=== PATIENT | male | born 1990 | race Caucasian/White ===

== ENCOUNTER 2019-06-08 00:39 | Emergency (ER) | payer MEDICAID ==
[~2019-06-08] VITALS: Ht 180.3 cm; Wt 81.6 kg
--- NOTE | 2019-06-08 00:45 | NUR ---
PT BIBSELF C/O OF NAUSEA AND VOMITTING X 12HRS, PT C/O OF THROAT PAIN. PT AXO4. RESPIRATIONS EVEN AND UNLABORED. PT PUT ON THE RUG CUTTER HELPER AND PULSE OX. PENDING EVAL FROM ER .
[2019-06-08] MEDS ORDERED: IV D5/ 0.9% NACL 1,000 ML IV ONE (00:51)
[2019-06-08] MEDS ORDERED: ONDANSETRON HCL/PF 4 MG/2 ML VIAL IVP ONE (01:00)
[2019-06-08] MEDS ORDERED: ONDANSETRON HCL/PF 4 MG/2 ML VIAL ONE (01:02)
[2019-06-08 01:42] LABS: BASOPHILS # (AUTO) 0.1 /CMM (0.0-0.2); BASOPHILS % (AUTO) 0.4 % (0.0-2.0); HEMATOCRIT 48 % (39-51); LYMPHOCYTES # (AUTO) 0.5 /CMM (0.8-4.8); LYMPHOCYTES % (AUTO) 3.3 % (20.0-44.0); MEAN CORPUSCULAR HGB CONC 35 g/dl (31.0-36.0); MEAN CORPUSCULAR VOLUME 97 fL (80-96); MONOCYTES # (AUTO) 1.4 /CMM (0.1-1.30); MONOCYTES % (AUTO) 9.6 % (2.0-12.0); NEUTROPHILS # (AUTO) 12.4 /CMM (1.8-8.9); NEUTROPHILS % (AUTO) 86.7 % (43.0-81.0); PLATELET COUNT (AUTO) 216 /CMM (150-450); RED BLOOD CELL COUNT(AUTO) 4.98 MIL/uL (4.5-6.0); WHITE BLOOD COUNT (AUTO) 14.3 K/uL (4.3-11.0)
[2019-06-08 01:58] LABS: CALCIUM, SERUM 9.4 mg/dL (8.5-10.1); CREATININE 1.6 mg/dL (0.6-1.3); POTASSIUM 4.2 mmol/L (3.5-5.1)
[2019-06-08 02:02] LABS: ALBUMIN 4.3 g/dL (3.4-5.0); BILIRUBIN,DIRECT 0.5 mg/dL (0.0-0.2); BILIRUBIN,TOTAL 1.7 mg/dL (0.2-1.0); TOTAL PROTEIN, SERUM 8.6 g/dL (6.4-8.2)
[2019-06-08] MEDS ORDERED: LIDOCAINE VISCOUS 2% UD 15 ML UDC ONE (02:12)
[2019-06-08] MEDS ORDERED: MAG HYDROX/AL HYDROX/SIMETH 30 ML UDC ONE (02:12)
[2019-06-08] MEDS ORDERED: MAG HYDROX/AL HYDROX/SIMETH 30 ML UDC PO ONE (02:30)
[2019-06-08] MEDS ORDERED: LIDOCAINE VISCOUS 2% UD 15 ML UDC MM ONE (02:30)
--- NOTE | 2019-06-08 02:30 | NUR ---
PT RESTING IN BED, NAD NOTED. WILL CONTINUE TO MONITOR.
[2019-06-08] MEDS ORDERED: HYDROMORPHONE 1 MG/1 ML DISP.SYRIN ONE (03:34)
[2019-06-08] MEDS ORDERED: METOCLOPRAMIDE HCL 10 MG/2 ML VIAL ONE (03:55)
[2019-06-08] MEDS ORDERED: HYDROMORPHONE 1 MG/1 ML DISP.SYRIN IV ONE (04:00)
[2019-06-08] MEDS ORDERED: METOCLOPRAMIDE HCL 10 MG/2 ML VIAL IV ONE (04:00)
[2019-06-08] MEDS ORDERED: IV NS 0.9% 1,000 ML IV PRN (04:43)
--- NOTE | 2019-06-08 04:50 | NUR ---
PT BROTHER ARRIVED TO ER BEING VERBALLY AGRESSIVE AND CURSING AT STAFF DEMANDING THAT WE REMOVE PATIENTS IV SO THEY COULD LEAVE THE HOSPITAL. DR ACOSTA CALLED TO BEDSIDE TO EXPLAIN PATIENTS CONDITION AND REASON FOR ADMISSION. BROTHER CONTINUED TO SPEAK AGGRESSIVELY AND CURSING AT DR ACOSTA. SECURITY AT BEDSIDE DUE TO AGGRESSIVE BEHAVIOR. Patient does not wish to proceed with medical care recommended by Dr. ACOSTA. Patient given information related to possible complications, up to and including , which could occur as a result of leaving the hospital at this time. Patient verbalizes understanding of risks involved due to leaving against medical advice. Patient has signed AMA form.
[2019-06-08] MEDS ORDERED: Z GUARD REMEDY 2 OZ OINT TP PRN (05:00)
[2019-06-08] MEDS ORDERED: MORPHINE SULFATE INJ 2 MG/ML DISP.SYRIN IV PRN (05:00)
[2019-06-08] MEDS ORDERED: LORAZEPAM INJ 2 MG/ML VIAL IV ONE (05:00)
[2019-06-08] MEDS ORDERED: ONDANSETRON HCL/PF 4 MG/2 ML VIAL IVP PRN (05:00)
[2019-06-08] MEDS ORDERED: ACETAMINOPHEN 325 MG TABLET PO PRN (05:00)
[2019-06-08 05:18] VITALS: BP 139/71
[2019-06-08] MEDS ORDERED: PANTOPRAZOLE 40 MG VIAL IV SCH (09:00)
== END 2019-06-08 05:19 | disposition left against medical advice (07) ==
LOC: ER 00:46 → UNDOADMIN 04:23 → MEDSG1 04:23 → ER 05:19
DX: K85.90 Acute pancreatitis without necrosis or infection, unspecified (principal); F10.20 Alcohol dependence, uncomplicated; K80.20 Calculus of gallbladder without cholecystitis without obstruction; R11.10 Vomiting, unspecified; Z60.2 Problems related to living alone; Y90.9 Presence of alcohol in blood, level not specified
CPT/HCPCS: 36415; 71045; 76705; 80048; 80076; 83690; 85025; 87081; 96361; 96374; 96375; 99284; A4216; C9113; J1170; J2405; J2765; J7042

== ENCOUNTER 2021-03-15 09:44 | Emergency (ER) | payer MEDICAID ==
[~2021-03-15] VITALS: Ht 182.9 cm; Wt 87.5 kg
--- NOTE | 2021-03-15 10:00 | NUR ---
patient came in to the er c/o left eye pain s/p slipped and fell hitting head in bathtub saturday night. On room air, breathing evenly and unlabored. Kept comfortable, will continue to monitor accordingly.
--- NOTE | 2021-03-15 10:15 | NUR ---
Dr. Mane at bedside for eval
[2021-03-15 11:51] VITALS: BP 118/78
--- NOTE | 2021-03-15 11:52 | NUR ---
Patient discharged to home in stable condition. Written and verbal after care instructions given. Patient verbalizes understanding of instruction.
== END 2021-03-15 11:52 | disposition home or self-care (01) ==
LOC: ER 09:44
DX: S05.12XA Contusion of eyeball and orbital tissues, left eye, initial encounter (principal); S09.8XXA Other specified injuries of head, initial encounter; F10.10 Alcohol abuse, uncomplicated; Y90.9 Presence of alcohol in blood, level not specified; Z60.2 Problems related to living alone; W01.198A Fall on same level from slipping, tripping and stumbling with subsequent striking against other object, initial encounter; Y93.89 Activity, other specified; Y92.89 Other specified places as the place of occurrence of the external cause; Y99.8 Other external cause status
CPT/HCPCS: 70450-TC; 70486-TC

== ENCOUNTER 2021-03-28 00:14 | Emergency (ER) | payer MEDICAID ==
[~2021-03-28] VITALS: Ht 182.9 cm; Wt 90.7 kg
--- NOTE | 2021-03-28 00:25 | NUR ---
bib girlfriend, endorses been "binge drinking" for days now. and is concern when she saw "bleach" inside his fridge and he might be drinking them. pt appears restless. etoh smell. restless, not verbally responsive. tachy group captain. awaiting md rios.
--- NOTE | 2021-03-28 00:36 | NUR ---
dr adames at bedside for eval.
--- NOTE | 2021-03-28 00:44 | NUR ---
label coder at bedside for blood draw.
[2021-03-28 01:10] LABS: BASOPHILS # (AUTO) 0.1 /CMM (0.0-0.2); BASOPHILS % (AUTO) 2.4 % (0.0-2.0); EOSINOPHILS % (AUTO) 0.2 % (0.0-6.0); HEMATOCRIT 48 % (39-51); HEMOGLOBIN 16.9 g/dL (13.5-17.5); LYMPHOCYTES # (AUTO) 2.4 /CMM (0.8-4.8); LYMPHOCYTES % (AUTO) 46.3 % (20.0-44.0); MEAN CORPUSCULAR HGB CONC 35 g/dl (31.0-36.0); MEAN CORPUSCULAR VOLUME 91 fL (80-96); MONOCYTES # (AUTO) 0.6 /CMM (0.1-1.30); MONOCYTES % (AUTO) 10.9 % (2.0-12.0); NEUTROPHILS # (AUTO) 2.1 /CMM (1.8-8.9); NEUTROPHILS % (AUTO) 40.2 % (43.0-81.0); PLATELET COUNT (AUTO) 372 /CMM (150-450); RED BLOOD CELL COUNT(AUTO) 5.25 MIL/uL (4.5-6.0); WHITE BLOOD COUNT (AUTO) 5.2 K/uL (4.3-11.0)
[2021-03-28 01:31] LABS: CALCIUM, SERUM 8.6 mg/dL (8.5-10.1); CARBON DIOXIDE 25 mmol/L (21-32); CHLORIDE 106 mmol/L (98-107); CREATININE 0.9 mg/dL (0.6-1.3); GLUCOSE 120 mg/dL (74-106); POTASSIUM 2.9 mmol/L (3.5-5.1); SODIUM SERUM 148 mmol/L (136-145); UREA NITROGEN, BLOOD 3 mg/dL (7-18)
[2021-03-28 01:38] LABS: ALANINE AMINOTRANSFERASE 119 U/L (12-78); ALCOHOL, BLOOD 483 mg/dL (0-0); ALKALINE PHOSPHATASE 126 U/L (46-116); ASPARTATE AMINOTRANSFERASE 100 U/L (15-37); BILIRUBIN,DIRECT 0.3 mg/dL (0.0-0.2); BILIRUBIN,TOTAL 0.7 mg/dL (0.2-1.0); TOTAL PROTEIN, SERUM 8.2 g/dL (6.4-8.2)
[2021-03-28 01:41] LABS: ACETAMINOPHEN < 2 ug/ml (10-30)
[2021-03-28 01:57] LABS: BILIRUBIN,URINE Negative (NEGATIVE); COLOR,URINE YELLOW (YELLOW); LEUKOCYTE ESTERASE ,URINE Negative (NEGATIVE); NITRITE, URINE Negative (NEGATIVE); PH,URINE 6.5 (5.0-8.0); PROTEIN,URINE Trace mg/dl (NEGATIVE); UGLUCOSE Negative (NEGATIVE); UROBILINOGEN,URINE 0.2 EU/dL (0.2)
[2021-03-28 02:41] LABS: BACTERIA,URINE None seen /HPF (None Seen); RBC,URINE 0-2 /HPF (0-2); SQUAMOUS EPITHELIAL CELL,UR Few /HPF (None Seen); URINE AMORPHOUS URATE Moderate /HPF (None Seen); WBC,URINE 0-2 /HPF (0-3)
--- NOTE | 2021-03-28 05:31 | NUR ---
sleeping, on monitor. stable vitals. arousable. will continue to monitor.
[2021-03-28] MEDS ORDERED: ONDANSETRON HCL/PF 4 MG/2 ML VIAL ONE (07:05)
--- NOTE | 2021-03-28 07:08 | NUR ---
pt requested medication for nausea. ermd aware. order for 1L NS and zofran 4mg iv. but patient refused.
[2021-03-28] MEDS: IV NS 0.9% 1,000 ML BAG IV ONE (07:11)
[2021-03-28] MEDS: ONDANSETRON HCL/PF 4 MG/2 ML VIAL IVP ONE (07:11)
--- NOTE | 2021-03-28 07:42 | NUR ---
PT STATED HE IS NOT SUICIDAL AND HIS WILL PICK HIM UP. AWARE.
--- NOTE | 2021-03-28 07:55 | NUR ---
Patient discharged to home in stable condition. Written and verbal after care instructions given to Patient's verbalizes understanding of instruction.
[2021-03-28 07:56] VITALS: BP 138/84
== END 2021-03-28 07:57 | disposition home or self-care (01) ==
LOC: ER 00:15
DX: R45.851 Suicidal ideations (principal); F10.10 Alcohol abuse, uncomplicated; Y90.8 Blood alcohol level of 240 mg/100 ml or more; R11.0 Nausea; R00.0 Tachycardia, unspecified; Z20.822 Contact with and (suspected) exposure to COVID-19
CPT/HCPCS: 36415; 80048; 80076; 80299; 80307; 80320; 81001; 85025; 87426; 99285; C9803; G0480; J2405; J7030

== ENCOUNTER 2021-04-14 14:37 | Emergency (ER) | payer MEDICAID ==
[~2021-04-14] VITALS: Ht 170.2 cm; Wt 81.6 kg
--- NOTE | 2021-04-14 14:50 | NUR ---
The patient is BIBA RA88 From Home "Intoxicated/alcoholic been binge drinking". Patient is alert and oriented x1. Verbally responsive. In room air. Respiration regular and unlabored. Attached to the monitor.
--- NOTE | 2021-04-14 15:35 | NUR ---
Quality Control Auditor consult: career services coordinator consult requested for ETOH use. Patient is a 31-year-old, male. SW met with patient at his bedside in the emergency department. Patient was alert and oriented x3. Patient was not oriented to situation. Patient presented drowsy. Per chart, patient was brought in by ambulance on 04/14/21 for ETOH use. SW assessed patients history of substance use and patient denied history and current substance use. SW discussed with the patient that ETOH use is what brought him to the hospital. Patient denied ETOH use. Patient stated that he currently lives with his girlfriend at [address] [place] [address]; [phone]. Patient stated that he is currently unemployed and receives GLADYS. Patient stated that he has adequate support from his parents and girlfriend. SW assessed patients history of mental illness and patient denied history. Patient denied current suicidal or homicidal ideation. SW discussed discharge plans with the patient and patient stated that he will be returning to his prior living arrangement. Patient stated he will be picked up by his parents. PLAN: Patient plans to return to his prior living arrangement at the time of discharge. No further SS intervention at this time, however, SW will remain available as needed.
[2021-04-14 16:02] LABS: BASOPHILS # (AUTO) 0.2 /CMM (0.0-0.2); BASOPHILS % (AUTO) 2.8 % (0.0-2.0); HEMATOCRIT 50 % (39-51); HEMOGLOBIN 17.2 g/dL (13.5-17.5); MEAN CORPUSCULAR HGB CONC 35 g/dl (31.0-36.0); MEAN CORPUSCULAR VOLUME 92 fL (80-96); MONOCYTES # (AUTO) 0.7 /CMM (0.1-1.30); MONOCYTES % (AUTO) 7.7 % (2.0-12.0); NEUTROPHILS # (AUTO) 4.5 /CMM (1.8-8.9); NEUTROPHILS % (AUTO) 53.5 % (43.0-81.0); PLATELET COUNT (AUTO) 553 /CMM (150-450); RED BLOOD CELL COUNT(AUTO) 5.39 MIL/uL (4.5-6.0); WHITE BLOOD COUNT (AUTO) 8.5 K/uL (4.3-11.0)
[2021-04-14] MEDS: IV NS 0.9% 1,000 ML BAG IV ONE (16:09)
[2021-04-14 16:14] LABS: CALCIUM, SERUM 8.5 mg/dL (8.5-10.1); CARBON DIOXIDE 21 mmol/L (21-32); CHLORIDE 104 mmol/L (98-107); CREATININE 1.1 mg/dL (0.6-1.3); GLUCOSE 155 mg/dL (74-106); POTASSIUM 3.2 mmol/L (3.5-5.1); SODIUM SERUM 146 mmol/L (136-145); UREA NITROGEN, BLOOD 2 mg/dL (7-18)
[2021-04-14 16:21] LABS: ALANINE AMINOTRANSFERASE 56 U/L (12-78); ALBUMIN 4.1 g/dL (3.4-5.0); ALCOHOL, BLOOD 513 mg/dL (0-0); ALKALINE PHOSPHATASE 129 U/L (46-116); ASPARTATE AMINOTRANSFERASE 47 U/L (15-37); BILIRUBIN,DIRECT 0.1 mg/dL (0.0-0.2); BILIRUBIN,TOTAL 0.4 mg/dL (0.2-1.0); TOTAL PROTEIN, SERUM 8.5 g/dL (6.4-8.2)
[2021-04-14 16:23] LABS: ACETAMINOPHEN < 10 ug/ml (10-30)
--- NOTE | 2021-04-14 17:14 | NUR ---
urine collected and sent to the lab
[2021-04-14 17:34] LABS: BILIRUBIN,URINE Negative (NEGATIVE); COLOR,URINE YELLOW (YELLOW); LEUKOCYTE ESTERASE ,URINE Negative (NEGATIVE); NITRITE, URINE Negative (NEGATIVE); PROTEIN,URINE Negative (NEGATIVE); UGLUCOSE Negative (NEGATIVE); UROBILINOGEN,URINE 0.2 EU/dL (0.2)
--- NOTE | 2021-04-14 17:44 | NUR ---
JOSE DAVID (MOTHER) [phone]
[2021-04-14 17:45] LABS: SQUAMOUS EPITHELIAL CELL,UR 0-2 /HPF (None Seen); WBC,URINE 0-2 /HPF (0-3)
[2021-04-14 17:46] LABS: BACTERIA,URINE Rare /HPF (None Seen); RBC,URINE 0-2 /HPF (0-2)
--- NOTE | 2021-04-14 17:51 | NUR ---
THE PATIENT SLEEPING. IN NO APPARENT DISTRESS. WILL CONTINUE TO MONITOR THE PATIENT.
--- NOTE | 2021-04-14 19:20 | NUR ---
PT AAOX4. AMBULATORY WITH STEADY GAIT. REQUESTING TO LEAVE ED. ER MD WAS MADE AWARE. ER MD SPOKE TO PT. PT DENIES SI AND HI. FAMILY WAS CALLED TO DRAMATIC TEACHER PT.
--- NOTE | 2021-04-14 19:23 | NUR ---
CALLED LAB REGARDING BLOOD DRAW.
--- NOTE | 2021-04-14 19:31 | NUR ---
PT REFUSE BMP REDRAW. DONYA SUERO MADE AWARE.
--- NOTE | 2021-04-14 19:54 | NUR ---
IV removed. Catheter intact and site benign. Pressure and 4x4 applied to site. No bleeding noted.
--- NOTE | 2021-04-14 19:54 | NUR ---
Patient does not wish to proceed with medical care recommended by Dr. PARKER. Patient given information related to possible complications, up to and including , which could occur as a result of leaving the hospital at this time. Patient verbalizes understanding of risks involved due to leaving against medical advice. Patient has signed AMA form. Pt picked up by family member. Did not want to wait for blood work. Signed AMA.
[2021-04-14 19:55] VITALS: BP 131/81
== END 2021-04-14 19:55 | disposition left against medical advice (07) ==
LOC: ER 14:40
DX: F10.129 Alcohol abuse with intoxication, unspecified (principal); Y90.8 Blood alcohol level of 240 mg/100 ml or more
CPT/HCPCS: 36415; 80048; 80076; 80143; 80307; 80320; 81001; 85025; 96360; 99283; J7030; G0480

== ENCOUNTER 2022-02-22 21:11 | Inpatient (IN) | payer MEDICAID ==
[~2022-02-22] VITALS: Ht 180.3 cm; Wt 75.7 kg
[2022-02-22] MEDS ORDERED: LORAZEPAM INJ 2 MG/ML VIAL IV ONE (21:30)
[2022-02-22] MEDS ORDERED: ONDANSETRON HCL/PF 4 MG/2 ML VIAL IVP ONE (21:30)
[2022-02-22] MEDS ORDERED: IV NS 0.9% 1,000 ML BAG IV ONE (21:30)
--- NOTE | 2022-02-22 21:30 | NUR ---
PATIENT BIBRA FROM HOME C/O AMS S/P SEIZURE AT 1730. PATIENT IS A/O X 1, RR EVEN, UNLABORED BREATHING. PATIENT TAKEN TO ER BED 13. PATIENT CONNECTED TO HAND ZIPPER TRIMMER AND POX. WILL CONTINUE TO MONITOR.
[2022-02-22] MEDS ORDERED: LORAZEPAM INJ 2 MG/ML VIAL ONE (21:31)
[2022-02-22] MEDS ORDERED: ONDANSETRON HCL/PF 4 MG/2 ML VIAL ONE (21:31)
--- NOTE | 2022-02-22 21:50 | NUR ---
PT RETURNED FROM CT
[2022-02-22] MEDS ORDERED: LIDOCAINE 2% JEL UROJET 10 ML MM ONE (21:57)
--- NOTE | 2022-02-22 22:12 | NUR ---
URINE COLLECTED AND SENT TO LAB.
[2022-02-22 22:13] LABS: ALANINE AMINOTRANSFERASE 126 U/L (12-78); ALBUMIN 3.7 g/dL (3.4-5.0); ALCOHOL, BLOOD < 3 mg/dL (0-0); ALKALINE PHOSPHATASE 102 U/L (46-116); ASPARTATE AMINOTRANSFERASE 178 U/L (15-37); BILIRUBIN,DIRECT 2.1 mg/dL (0.0-0.2); BILIRUBIN,TOTAL 5.3 mg/dL (0.2-1.0); CALCIUM, SERUM 8.4 mg/dL (8.5-10.1); CREATININE 3.2 mg/dL (0.6-1.3); GLUCOSE 99 mg/dL (74-106); TOTAL PROTEIN, SERUM 7.8 g/dL (6.4-8.2); UREA NITROGEN, BLOOD 17 mg/dL (7-18)
[2022-02-22 22:17] LABS: BASOPHILS % (AUTO) 0.2 % (0.0-2.0); HEMATOCRIT 45 % (39-51); HEMOGLOBIN 16.1 g/dL (13.5-17.5); LYMPHOCYTES # (AUTO) 0.9 K/uL (0.8-4.8); LYMPHOCYTES % (AUTO) 4.5 % (20.0-44.0); MEAN CORPUSCULAR HGB CONC 36 g/dl (31.0-36.0); MEAN CORPUSCULAR VOLUME 87 fL (80-96); MONOCYTES # (AUTO) 1.9 K/uL (0.1-1.30); MONOCYTES % (AUTO) 9.2 % (2.0-12.0); NEUTROPHILS # (AUTO) 17.6 K/uL (1.8-8.9); NEUTROPHILS % (AUTO) 86.1 % (43.0-81.0); PLATELET COUNT (AUTO) 110 K/uL (150-450); RED BLOOD CELL COUNT(AUTO) 5.15 MIL/uL (4.5-6.0); WHITE BLOOD COUNT (AUTO) 20.4 K/uL (4.3-11.0)
[2022-02-22 22:18] LABS: CARBON DIOXIDE 21 mmol/L (21-32)
[2022-02-22 22:19] LABS: ACETAMINOPHEN 0 ug/ml (10-30)
[2022-02-22 22:21] LABS: CHLORIDE 72 mmol/L (98-107); POTASSIUM 2.6 mmol/L (3.5-5.1); SODIUM SERUM 120 mmol/L (136-145)
--- NOTE | 2022-02-22 22:27 | NUR ---
CRITICAL LABS: NA - 120 K - 2.6 CL - 72
[2022-02-22] MEDS ORDERED: POTASSIUM CL. PREMIX PERIPHER. 50 ML ONE ×2 (22:33→23:17)
[2022-02-22] MEDS ORDERED: IV Sodium Chloride 3% 500 ML 500 ML IV ONE (22:33)
[2022-02-22] MEDS: POTASSIUM CHLORIDE 10 MEQ/50 ML PREMIXED IVPB FOR PERIPHERAL LINE IV ONE ×2 (22:35→22:40)
--- NOTE | 2022-02-22 22:41 | NUR ---
one bag potassium given.
--- NOTE | 2022-02-22 22:46 | NUR ---
COVID ANTIGEN SWAB COLLECTED AND SENT TO LAB
[2022-02-22] MEDS ORDERED: SODIUM CHLORIDE 3% IV ONE (23:00)
[2022-02-22 23:20] LABS: BILIRUBIN,URINE SMALL (NEGATIVE); COLOR,URINE DARK YELLOW (YELLOW); LEUKOCYTE ESTERASE ,URINE NEGATIVE (NEGATIVE); NITRITE, URINE POSITIVE (NEGATIVE); PROTEIN,URINE 100 mg/dl (NEGATIVE); UGLUCOSE NEGATIVE (NEGATIVE)
--- NOTE | 2022-02-22 23:41 | NUR ---
second bag potassium administered.
[2022-02-23 00:18] LABS: CALCIUM, SERUM 7.2 mg/dL (8.5-10.1); CREATININE 2.4 mg/dL (0.6-1.3)
[2022-02-23] MEDS ORDERED: POTASSIUM CL. PREMIX PERIPHER. 50 ML ONE ×6 (00:19→13:36)
[2022-02-23 00:24] LABS: POTASSIUM 2.8 mmol/L (3.5-5.1)
[2022-02-23] MEDS ORDERED: CIPROFLOXACIN IV RTU 200 ML IV ONE (00:44)
[2022-02-23] MEDS ORDERED: POTASSIUM CHLORIDE 20 MEQ TAB.PRT.SR PO ONE (01:00)
[2022-02-23] MEDS: THIAMINE HCL 100 MG TABLET PO SCH ×2 (01:00→09:00)
[2022-02-23] MEDS ORDERED: ONDANSETRON HCL/PF 4 MG/2 ML VIAL IVP PRN (01:00)
[2022-02-23] MEDS ORDERED: CIPROFLOXACIN IV RTU 400 MG in PREMIX 1 EA IV ONE (01:00)
[2022-02-23] MEDS: FOLIC ACID 1 MG TABLET PO SCH ×2 (01:00→09:00)
[2022-02-23] MEDS: IV D5/ 0.9% NACL 1,000 ML IV PRN ×3 (01:00→20:31)
[2022-02-23] MEDS ORDERED: LORAZEPAM INJ 2 MG/ML VIAL IV PRN (01:00)
[2022-02-23] MEDS ORDERED: ACETAMINOPHEN 325 MG TABLET PO PRN (01:00)
[2022-02-23] MEDS ORDERED: Z GUARD REMEDY 4 OZ OINT TP PRN (01:00)
--- NOTE | 2022-02-23 02:28 | NUR ---
PT SLEEPING IN [facility]. NO SIGNS OF DISTRESS NOTED. PT VITAL SIGNS WITHIN NORMAL LIMITS. WILL CONT TO MONITOR PT.
--- NOTE | 2022-02-23 03:07 | NUR ---
PT AROUSABLE TO VOICE. A/OX2.
--- NOTE | 2022-02-23 07:41 | NUR ---
US AT BEDSIDE
[2022-02-23 08:30] LABS: BACTERIA,URINE Few /HPF (None Seen)
[2022-02-23] MEDS ORDERED: PANTOPRAZOLE 40 MG TABLET.DR PO ONE (08:30)
[2022-02-23] MEDS ORDERED: ENOXAPARIN SODIUM 30 MG/0.3 ML DISP.SYRIN ONE (08:30)
[2022-02-23] MEDS: PANTOPRAZOLE 40 MG TABLET.DR PO SCH (08:33)
--- NOTE | 2022-02-23 08:33 | NUR ---
PROTONIX DYE AT 0730 NOT GIVEN DUE TO PATIENT BEING VERY SLEEPY. AWARE.
[2022-02-23 08:39] LABS: SQUAMOUS EPITHELIAL CELL,UR None Seen /HPF (None Seen)
[2022-02-23 08:40] LABS: MUCUS,URINE Few /LPF (None Seen); URINE AMORPHOUS URATE Few /HPF (None Seen)
[2022-02-23] MEDS: ENOXAPARIN SODIUM 30 MG/0.3 ML DISP.SYRIN SQ SCH (09:24)
[2022-02-23] MEDS: POTASSIUM CL. PREMIX PERIPHER. 50 ML IV SCH ×6 (10:30→15:30)
[2022-02-23] MEDS ORDERED: Magnesium 1GM/D5W 100ML PREMIX 100 ML IV ONE ×2 (10:50→17:18)
[2022-02-23] MEDS: Magnesium 1GM/D5W 100ML PREMIX 100 ML IV SCH ×2 (10:58→17:25)
[2022-02-23] MEDS: CIPROFLOXACIN IV RTU 400 MG in PREMIX 1 EA IV SCH ×3 (12:38)
[2022-02-23] MEDS ORDERED: HYDROCODONE/APAP 5/325MG TABLET ONE (17:18)
[2022-02-23] MEDS ORDERED: POTASSIUM CL. PREMIX PERIPHER. 100 ML ONE (18:13)
--- NOTE | 2022-02-23 18:29 | NUR ---
NURSING SUP GAVE M/S BED 311-1. PLEASE TRANSFER PATIENT AFTER SHIFT CHANGE.
--- NOTE | 2022-02-23 19:00 | NUR ---
REPORT GIVEN TO DAVID RN FOR RODOLFO, TRANSFER AFTER SHIFT CHANGE
--- NOTE | 2022-02-23 19:28 | NUR ---
PT TRANSFERRED UNDER ACLS.
[2022-02-23 19:45] VITALS: BP 128/76
--- NOTE | 2022-02-23 20:30 | NUR ---
HEALTH UNIT CLERK ADMITTING NOTES: RECEIVED PATIENT FROM ER AWAKE AMBULATORY, PLACED IN BED COMFORTABLY, BED IN LOW POSITION, CALL LIGHTS WITHIN REACH, NO COMPLAIN OF PAIN AND DISCOMFORT AT THIS TIME ON TELE MONITORING SR-94 NO SYMPTOMS WAS OBSERVED, ON ROOM AIR SATURATING WELL , SKIN ASSESSMENT DONE AND DOCUMENTED, INVENTORY DONE SIGNED, WITH IV LINE AT RFA#20 WITH ONGOING D5NS@125ML PER HOUR INFUSING WELL, PATIENT IS A/O X4 MORE AWAKE AND ORIENTED, ABLE TO RESPOND PROPERLY ON QUESTION, PLACED COMFORTABLY ON BED, ORIENTED TO ROOM, REMIND PATIENT TO USE CALL LIGHTS WHEN NEEDED ASSISTANCE, PATIENT KEPT CLEAN AND DRY ALL NEEDS MET WILL CONTINUE TO MONITOR
--- NOTE | 2022-02-23 21:58 | NUR ---
RN NOTES: NOTIFY DR ALVARADO ABOUT THE DIET PATIENT IS ASKING FOR PAIN MEDICATION AND HE HAS PO MEDICINE FOR PAIN , DID SWALLOW EVAL WITH SIP OF WATER AND APPLE SAUCE NO DIFFICULTY OF SWALLOWING OBSERVED, RELEAYED TO DR ALVARADO AND ORDERED TO SHIFT NPO TO PUREED DIET NOTED AND CARRY OUT.
[2022-02-23] MEDS: HYDROCODONE/APAP 5/325MG TABLET PO PRN (22:56)
[2022-02-24] VITALS: BP 127/81
[2022-02-24] MEDS: CIPROFLOXACIN IV RTU 400 MG in PREMIX 1 EA IV SCH ×3 (00:22→23:25)
[2022-02-24 04:00] VITALS: BP 126/83
[2022-02-24] MEDS: HYDROCODONE/APAP 5/325MG TABLET PO PRN ×4 (05:55→21:45)
--- NOTE | 2022-02-24 06:06 | NUR ---
GOLF BALL TRIMMER CLOSING NOTES: PATIENT SLEEP IN BED COMFORTABLY, BED IN LOW POSITION, CALL LIGHTS WITHIN REACH, NO COMPLAIN OF PAIN AND DISCOMFORT AT THIS TIME, PATIENT IS A/OX4, AMBULATORY, ABLE TO MAKE NEEDS KNOWN, ON ROOM AIR SATURATING WELL,ON TELE MONITORING SR-76, WITH IV LINE AT RFA#20 WITH ONGOING D5NSS@ 125ML PER HOUR INFUSING WELL, PATIENT KEPT CLEAN AND DRY ALL NEEDS MET ENDORSE TO INCOMING SHIFT.
[2022-02-24 06:20] LABS: BASOPHILS % (AUTO) 0.2 % (0.0-2.0); EOSINOPHILS % (AUTO) 0.3 % (0.0-6.0); HEMATOCRIT 38 % (39-51); HEMOGLOBIN 13.6 g/dL (13.5-17.5); LYMPHOCYTES # (AUTO) 1.3 K/uL (0.8-4.8); MEAN CORPUSCULAR HGB CONC 36 g/dl (31.0-36.0); MEAN CORPUSCULAR VOLUME 88 fL (80-96); MONOCYTES # (AUTO) 0.9 K/uL (0.1-1.30); MONOCYTES % (AUTO) 10.2 % (2.0-12.0); NEUTROPHILS # (AUTO) 6.1 K/uL (1.8-8.9); NEUTROPHILS % (AUTO) 73.3 % (43.0-81.0); PLATELET COUNT (AUTO) 100 K/uL (150-450); RED BLOOD CELL COUNT(AUTO) 4.37 MIL/uL (4.5-6.0); WHITE BLOOD COUNT (AUTO) 8.3 K/uL (4.3-11.0)
[2022-02-24 06:22] LABS: CALCIUM, SERUM 8.2 mg/dL (8.5-10.1); CREATININE 1.1 mg/dL (0.6-1.3); MAGNESIUM 1.7 mg/dL (1.8-2.4); PHOSPHORUS 1.8 mg/dL (2.5-4.9)
[2022-02-24 06:26] LABS: POTASSIUM 2.6 mmol/L (3.5-5.1)
--- NOTE | 2022-02-24 06:32 | NUR ---
RN NOTES RECEIVED A CRITICAL LABORATORY OF POTASSIUM AT 2.6 0630 NOTIFY MD AWAITING FOR REPLY:
--- NOTE | 2022-02-24 07:20 | NUR ---
RN OPENING NOTES RECEIVED PATIENT IN BED, AWAKE, A/O X4, VERBALLY RESPONSIVE, NO SIGNS OF ACUTE DISTRESS NOTED. ON ROOM AIR, NO SOB NOTED. BREATHING EVEN AND UNLABORED. NOTED WITH IV ACCESS ON RIGHT FOREARM #20G AND LEFT HAND #20G INTACT AND PATENT WITH NS @125 ML/HR INFUSING WELL. NO C/O PAIN AT THIS TIME. SAFETY MEASURE IN PLACE. BED IN LOWEST AND LOCKED POSITION, SR UP, CALL LIGHT PLACED WITHIN EASY REACH. WILL CONTINUE TO MONITOR.
[2022-02-24 08:00] VITALS: BP 135/97
[2022-02-24] MEDS: PANTOPRAZOLE 40 MG TABLET.DR PO SCH (08:33)
[2022-02-24] MEDS: FOLIC ACID 1 MG TABLET PO SCH (08:50)
[2022-02-24] MEDS: POTASSIUM CHLORIDE 20 MEQ TAB.PRT.SR PO SCH ×2 (08:50→09:45)
[2022-02-24] MEDS: THIAMINE HCL 100 MG TABLET PO SCH (08:50)
[2022-02-24] MEDS: ENOXAPARIN SODIUM 30 MG/0.3 ML DISP.SYRIN SQ SCH (08:53)
[2022-02-24] MEDS: Magnesium 1GM/D5W 100ML PREMIX 100 ML IV SCH ×2 (08:55→09:57)
[2022-02-24] MEDS: Potassium Chloride 20 MEQ in IV NS 0.9% 1,000 ML IV SCH (11:32)
[2022-02-24 12:00] VITALS: BP 122/75
[2022-02-24 16:00] VITALS: BP 125/79
[2022-02-24] MEDS ORDERED: K PHOS NEUTRAL 250 MG TABLET PO ONE (16:00)
--- NOTE | 2022-02-24 18:40 | NUR ---
RN CLOSING NOTES PATIENT IN BED, AWAKE, A/O X4. NO SIGNS OF ACUTE DISTRESS NOTED. REMAINS STABLE ON ROOM AIR, NO SOB NOTED. IV ACCESS ON LEFT ARM #20G, INTACT AND PATENT WITH NS+ 20 MEQ KCL @75 ML/HR INFUSING WELL. ON TELE MONITOR WITH CURRENT READING SHOWING SINUS RHYTHM, HR @--. MEDICATED WITH NORCO FOR C/O PAIN. SAFETY MEASURE MAINTAINED. BED IN LOWEST AND LOCKED POSITION, SR UP X2, CALL LIGHT PLACED WITHIN EASY REACH. WILL ENDORSE TO NEXT SHIFT FOR RODOLFO.
--- NOTE | 2022-02-24 19:30 | NUR ---
MAINTENANCE MECHANIC SUPERVISOR NOTES RECEIVED LAYING ON BED,ASLEEP,BREATHING EVEN AND UNLABORED,PRESENT IVF NS WITH 20MEQ KCL INFUSING 75ML/HR RATE VIA IV PUMP ON LEFT HAND,NO INFILTRATION NOTED.,SEIZURE PRECAUTION OBSERVED,SIDE RAILS PADDED FOR SAFETY,BED ON LOWEST POSITION AND LOCKED,CALL LIGHT IN REACH,NEEDS ANTICIPATED.
[2022-02-24 20:00] VITALS: BP_SYST 130; BP_SYST 134; BP_DIAS 90
--- NOTE | 2022-02-24 20:00 | NUR ---
PRINT LINE FEEDER NOTES REFUSED VITAL SIGNS DUE THIS TIME 1999.
--- NOTE | 2022-02-24 21:45 | NUR ---
DAIRY FARM OPERATOR NOTES HAVING PAIN ON THE BACK,7/10 ON PAIN SCALE,NORCO 5/325MG,1 TAB PO GIVEN ORDERED
[2022-02-25] VITALS: BP 158/90
[2022-02-25] MEDS: Potassium Chloride 20 MEQ in IV NS 0.9% 1,000 ML IV SCH (03:31)
[2022-02-25 04:00] VITALS: BP 138/96
--- NOTE | 2022-02-25 06:26 | NUR ---
CONTAINER REPAIRER NOTES LAYING ON BED A/O X4,MORE ALERT,NO SEIZURE ACTIVITY,REGULAR FOOD TOLERATED WELL,NO ASPIRATION NOTED.AMBULATE WITH STEADY GAIT TO THE BATHROOM.IVF INFUSING WELL ON LEFT HAND SALINE LOCK,SITE REMAINS PATENT,IN NO ACUTE DISTRESS.
--- NOTE | 2022-02-25 07:18 | NUR ---
PROGRAM DIRECTOR/MUSIC DIRECTOR OPENING NOTE RECEIVED PATIENT ON BED, AWAKE, A/O X4. ON ROOM AIR WITH EQUAL AND UNLABORED BREATHING WITH NO SIGNS OF RESPIRATORY DISTRESS. WITH IV ACCESS ON RIGHT FOREARM #20G, WITH IVF OF NS WITH 20 MEQ KCL RUNNING AT 75 ML/HR. SAFETY MEASURE IN PLACE. WITH BED IN LOWEST AND LOCKED POSITION, SIDERAILS UP AND CALL LIGHT WITHIN REACH AT ALL TIMES.
[2022-02-25 08:00] VITALS: BP 144/101
[2022-02-25] MEDS: THIAMINE HCL 100 MG TABLET PO SCH (08:17)
[2022-02-25] MEDS: FOLIC ACID 1 MG TABLET PO SCH (08:17)
[2022-02-25] MEDS: PANTOPRAZOLE 40 MG TABLET.DR PO SCH (08:17)
--- NOTE | 2022-02-25 08:22 | NUR ---
RESEARCH STUDY ASSISTANT NOTE PATIENT SEEN BY DR. PETE.
[2022-02-25] MEDS: ENOXAPARIN SODIUM 30 MG/0.3 ML DISP.SYRIN SQ SCH (08:25)
[2022-02-25] MEDS ORDERED: Potassium Chloride 40 MEQ in IV NS 0.9% 1,000 ML IV SCH (09:00)
[2022-02-25 09:04] LABS: CALCIUM, SERUM 8.1 mg/dL (8.5-10.1); CREATININE 0.9 mg/dL (0.6-1.3)
[2022-02-25 09:06] LABS: POTASSIUM 2.2 mmol/L (3.5-5.1)
--- NOTE | 2022-02-25 09:25 | NUR ---
MANAGER STRATEGIC SOURCING NOTE PATIENT WITH CRITICAL LAB RESULT OF SERUM POTASSIUM AT 2.2. WITH ORDER OF POTASSIUM TABS TOTAL OF 80 MEQS AND IVF WAS CHANGED TO NS PLUS 40 MEQS RUNNING AT 75 ML/HR. PATIENT DOES NOT EXHIBIT ANY SIGHS AND SYMPTOMS OF HYPOKALEMIA. MD ALSO NOTIFIED THAT PATIENT HAVE BEEN HAVING LOOSE STOOL. DR. PETE, NOTIFIED WITH ORDERS READ AND VERIFIED. HEALTH TEACHING DONE REGARDING SIGNS AND SYMPTOMS OF HYPOKALEMIA.
[2022-02-25] MEDS ORDERED: POTASSIUM CHLORIDE 20 MEQ TAB.PRT.SR PO ONE (09:30)
[2022-02-25] MEDS ORDERED: LOPERAMIDE HCL (2 MG CAP) 2 MG CAPSULE PO PRN (10:30)
[2022-02-25 14:39] LABS: ALBUMIN 3.2 g/dL (3.4-5.0); BILIRUBIN,TOTAL 1.9 mg/dL (0.2-1.0); CALCIUM, SERUM 8.2 mg/dL (8.5-10.1); TOTAL PROTEIN, SERUM 6.7 g/dL (6.4-8.2)
[2022-02-25 14:41] LABS: POTASSIUM 2.8 mmol/L (3.5-5.1)
--- NOTE | 2022-02-25 15:47 | NUR ---
DYE HOUSE WORKER NOTE REPEAT K RESULT OF 2.[address] PETE. NO SIGNS ANS SYMPTOMS OF HYPOKALEMIA NOTED. ORDERS MADE AND VERIFIED.
[2022-02-25] MEDS ORDERED: POTASSIUM CHLORIDE 10 MEQ TABLET.SA PO ONE (16:00)
--- NOTE | 2022-02-25 17:10 | NUR ---
HELIARC WELDER NOTE PATIENT LEFT AMA. PATIENT WAS ALREADY DRESSED WHEN HE APPROACHED THIS NURSE. HE HAD PULLED HIS IV OUT AND HE JUST SAID THAT HE HAD TO LEAVE TODAY. LEFT MESSAGE FOR DR. PETE THROUGH [employer] MEDICAL NUMBER, TELEPHONE CLERK LIO. HEALTH TEACHING DONE REGARDING MEDICAL CONDITION AND POSSIBLE REPERCUSSIIONS OF ACTION. VERBALIZED UNDERSTANDING AND APPRECIATION. PATIENT REFUSED TO HAVE BODY CHECK BUT SIGNED INVENTORY LIST. PATIENT IN STABLE CONDITION. PATIENT AMBULATORY WITH STEADY GAIT. CHARGE NURSE NOTIFIED OF AMA.
== END 2022-02-25 16:55 | disposition left against medical advice (07) | DRG 770 ==
LOC: ER 21:16 → TRANSITION 02-23 01:32 → TELE 02-23 18:55 → MED 02-24 09:22 → TELE 02-24 09:24
PROVIDERS: ADMIT Internal Medicine; ATTEND Internal Medicine
DX: F10.10 Alcohol abuse, uncomplicated (principal); N17.0 Acute kidney failure with tubular necrosis; G31.2 Degeneration of nervous system due to alcohol; E87.1 Hypo-osmolality and hyponatremia; K70.9 Alcoholic liver disease, unspecified; G40.89 Other seizures; Y90.0 Blood alcohol level of less than 20 mg/100 ml; E87.6 Hypokalemia; R74.01 Elevation of levels of liver transaminase levels
CPT/HCPCS: 36415; 70450-TC; 71045-TC; 76700-TC; 80048-TC; 80053-TC; 80076-TC; 81001; 82140-TC; 83735-TC; 84100-TC; 85025-TC; 85730-TC; 87081-TC; 87086-TC; A4216; C9803; G0378; G0480; J0744; J1650; J2060; J2405; J3475; J3480; J3490; J7030; J7042; J7050